=== PATIENT | female | born 1975 | race Caucasian/White ===

== ENCOUNTER 2017-08-07 12:43 | Emergency (ER) | payer OTHER ==
[2017-08-07 12:47] VITALS: TEMP 98.1
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
[2017-08-07 13:46] VITALS: BP 128/67; PULSE 53; RESP 18; O2SAT 100
== END 2017-08-07 13:46 | disposition home or self-care (01) ==
PROC: 0HQDXZZ Repair Right Lower Arm Skin, External Approach (ICD-10-PCS; principal; 2017-08-07)
DX: S51.811A Laceration without foreign body of right forearm, initial encounter (principal); W45.8XXA Other foreign body or object entering through skin, initial encounter